=== PATIENT | female | born 1995 | race Caucasian/White ===

== ENCOUNTER 2017-11-30 21:56 | Emergency (ER) | payer BC ==
[2017-11-30 22:05] VITALS: BP 163/89
[2017-11-30] MEDS ORDERED: PENICILLIN VK 250 MG TABLET PO STA (22:23)
--- NOTE | 2017-11-30 22:25 | ED Physician Documentation ---
History of Present Illness - Stated complaint Stated Complaint: RT FACE NUMBNESS - Chief complaint Chief Complaint: General - History obtained from History obtained from: Patient, Friend - History of Present Illness Timing: How many days ago (2) Pain level max: 5 Pain level now: 2 Improved by: ice Worsened by: eating - Additonal information Additional information: R lower mandible/tooth pain. Facial swelling noted tonight. Decreased now. Review of Systems Constitutional: denies: Fever Ears: denies: Ear pain Nose: denies: Rhinorrhea / runny nose, Congestion, Epistaxis, Sinus pressure / pain Throat: denies: Sore throat Respiratory: denies: Cough GI: denies: Abdominal Pain, Nausea, Vomiting, Diarrhea : denies: Now EGA Skin: denies: Rash Musculoskeletal: denies: Neck pain, Back pain Neurologic: denies: Headache PD PAST MEDICAL HISTORY - Past Medical History Past Medical History: No - Past Surgical History Past Surgical History: No - Present Medications Home Medications: Ambulatory Orders Medication Instructions Recorded Confirmed Penicillin V Potassium 500 mg PO Q6HR #40 tablet 11/30/17 - Allergies Allergies/Adverse Reactions: Allergies Allergy/AdvReac Type Severity Reaction Status Date / Time No Known Drug Allergies Allergy Verified 11/30/17 22:05 - Living Situation Living Arrangement: reports: At home - Social History Does the pt drink ETOH?: No Does the pt have substance abuse?: No - Family History Family history: reports: Non contributory PD ED PE NORMAL - Vitals Vital signs reviewed: Yes - General General: Alert and oriented X 3, No acute distress - HEENT HEENT: Moist mucous membranes, Pharynx benign - Neck Neck: Supple, no meningeal sign, No adenopathy - Cardiac Cardiac: RRR - Respiratory Respiratory: No respiratory distress, Clear bilaterally - Derm Derm: Warm and dry - Neuro Neuro: Alert and oriented X 3 PD ED PE EXPANDED - HEENT HEENT Visual: 1 - tenderness (mild gingival swelling. no visible or drainable abscess. no facial cellulitis. no ludwigs angina. no swollen salivary glands.) Results - Vitals Vitals: Vital Signs - 24 hr 11/30/17 22:03 Temperature 36.8 C Heart Rate 77 Respiratory 16 Rate Blood Pressure 163/89 H O2 Saturation 99 Oxygen O2 Source Room air PD MEDICAL DECISION MAKING - ED course Complexity details: considered differential, d/w patient ED course: Patient is a 22-year-old female who presents to the emergency department with what appears to be a right lower dental pain. Tender along the gumline. No visible swelling, but does have mild swelling on palpation. No drainable abscess. Afebrile. Tolerating p.o. without difficulty. Will place on antibiotics for home and follow-up with her doctor. Also counseled to follow- up closely with the dentist. Patient counseled regarding signs and symptoms for which I believe and urgent re-evaluation would be necessary. Patient with good understanding of and agreement to plan and is comfortable going home at this time This document was made in part using voice recognition software. While efforts are made to proofread this document, sound alike and grammatical errors may occur. Departure - Departure Disposition: 01 Home, Self Care Clinical Impression: Dental caries Condition: Good Instructions: ED Cavity Dental Follow-Up: LUIS BAEZA [Physician No Access] - Prescriptions: Penicillin V Potassium 500 mg PO Q6HR #40 tablet Comments: Take all antibiotics until gone. Make sure to follow-up with a dentist for further evaluation and care next week. Return if you worsen Discharge Date/Time: 11/30/17 22:28
== END 2017-11-30 22:28 | disposition home or self-care (01) ==
LOC: ED 21:56
DX: K02.9 Dental caries, unspecified (principal)
CPT/HCPCS: 99283; A9270